=== PATIENT | male | born 1955 | race Caucasian/White ===

== ENCOUNTER 2018-08-20 10:43 | Emergency (ER) | payer OTHER ==
--- NOTE | 2018-08-20 10:57 | EDPHY ---
H & P Time Seen by Provider: 08/20/18 10:56 HPI/ROS: CHIEF COMPLAINT: Blood in urine HISTORY OF PRESENT ILLNESS: Grandson has been having gastroenteritis 2 weeks ago and he has felt a little bit of intermittent stomach upset for the past week. On night he did notice that he was much more tired than usual after a workout which includes running and some weight exercises. Or last 48 hr increased urinary frequency and then today noticed it was rust or nancy- colored and then it episodes of hematuria at 9:00 a.m. 10:30 a.m. And again in the emergency department. Blood in urine not associated with abdominal pain or fever. Not better or worse with anything. Moderate. REVIEW OF SYSTEMS: Eye: no change in vision ENT: no sore throat Cardiac: no chest pain or syncope. Of note his previous IN he had bilateral arm pain which she has not had today. Pulmonary: no cough or SOB Abdomen: no vomiting, diarrhea, abdominal pain Musculoskeletal: no back pain Skin: no rash Neuro: no headache Constitutional: no fever : HPI A comprehensive 10 point review of systems is otherwise negative aside from elements mentioned in the history of present illness. PAST MEDICAL HISTORY: Includes myocardial infarction in June of 2017 Social history: Nonsmoker General Appearance: Alert and conversant, cooperative. Eyes: No scleral icterus. ENT, Mouth: Normal mucous membranes. Respiratory: Normal respiratory effort, breath sounds equal, lungs are clear to auscultation. Cardiovascular: Regular rate and rhythm. Gastrointestinal: Abdomen is soft and non tender. Normal male without any blood at the meatus, normal testicles. Neurological: Alert, face symmetric, normal motor and sensory in extremities. Skin: Warm and dry, no rashes. No petechiae or purpura. Musculoskeletal: No peripheral edema. Psychiatric: Not agitated. Emergency Department course/MDM: Bladder scan, CBC chemistry urinalysis, total CPK. Urinalysis positive for hematuria and pyuria with 4+ bacteria. Culture sent and IV ceftriaxone discussed and consented. Think it is unlikely that he has pyelonephritis or sepsis, systemic coagulopathy , ACS, appears to be a good candidate for outpatient treatment. Not vomiting, afebrile, nontoxic and appears well and this is what the patient would like. Constitutional: Initial Vital Signs Temperature (C) 36.9 C 08/20/18 10:44 Heart Rate 67 08/20/18 10:44 Respiratory Rate 16 08/20/18 10:44 Blood Pressure 115/73 08/20/18 10:44 O2 Sat (%) 95 08/20/18 10:44 O2 Delivery Mode Room Air Allergies/Adverse Reactions: No Known Allergies Allergy (Unverified 08/20/18 10:50) Home Medications: Medication Instructions Recorded Aspirin [Aspirin 325 mg (*)] 08/20/18 Cephalexin [Keflex] 500 mg PO QID #40 cap 08/20/18 Clopidogrel 08/20/18 Lisinopril 08/20/18 Metoprolol Succinate 08/20/18 Rosuvastatin Calcium 08/20/18 Medical Decision Making - Data Points Laboratory Results: Laboratory Results 08/20/18 11:00 08/20/18 11:00 08/20/18 08/20/18 08/20/18 11:00 11:00 11:00 WBC 12.56 10^3/uL H 10^3/uL (3.80-9.50) RBC 5.06 10^6/uL 10^6/uL (4.40-6.38) Hgb 16.2 g/dL g/dL (13.7-17.5) Hct 48.4 % % (40.0-51.0) MCV 95.7 fL fL (81.5-99.8) MCH 32.0 pg pg (27.9-34.1) MCHC 33.5 g/dL g/dL (32.4-36.7) RDW 12.7 % % (11.5-15.2) Plt Count 189 10^3/uL 10^3/uL (150-400) MPV 9.4 fL fL (8.7-11.7) Neut % (Auto) 76.8 % H % (39.3-74.2) Lymph % (Auto) 13.0 % L % (15.0-45.0) Wheeler % (Auto) 9.2 % % (4.5-13.0) Eos % (Auto) 0.4 % L % (0.6-7.6) Baso % (Auto) 0.3 % % (0.3-1.7) Nucleat RBC Rel Count 0.0 % % (0.0-0.2) Absolute Neuts (auto) 9.64 10^3/uL H 10^3/uL (1.70-6.50) Absolute Lymphs (auto) 1.63 10^3/uL 10^3/uL (1.00-3.00) Absolute Monos (auto) 1.16 10^3/uL H 10^3/uL (0.30-0.80) Absolute Eos (auto) 0.05 10^3/uL 10^3/uL (0.03-0.40) Absolute Basos (auto) 0.04 10^3/uL 10^3/uL (0.02-0.10) Absolute Nucleated RBC 0.00 10^3/uL 10^3/uL (0-0.01) Immature Gran % 0.3 % % (0.0-1.1) Immature Gran # 0.04 10^3/uL 10^3/uL (0.00-0.10) Sodium 141 mEq/L mEq/L (135-145) Potassium 4.7 mEq/L mEq/L (3.5-5.2) Chloride 108 mEq/L mEq/L (97-110) Carbon Dioxide 24 mEq/l mEq/l (22-31) Anion Gap 9 mEq/L mEq/L (6-14) BUN 23 mg/dL mg/dL (7-23) Creatinine 1.1 mg/dL mg/dL (0.7-1.3) Estimated GFR > 60 Glucose 84 mg/dL mg/dL (70-100) Calcium 9.2 mg/dL mg/dL (8.5-10.4) Creatine Kinase 258 IU/L H IU/L (0-224) CK-MB (CK-2) Fraction 3.66 ng/mL ng/mL (0.00-4.55) CK-MB (CK-2) % 1.4 % % (0.0-4.0) Creatine Kinase Interp NEGATIVE (NEGATIVE) Urine Color Urine Appearance Urine pH Ur Specific [place] Urine Protein Urine Ketones Urine Blood Urine Nitrate Urine Bilirubin Urine Urobilinogen Ur Leukocyte Esterase Urine RBC Urine WBC Ur Epithelial Cells Urine Bacteria Urine Mucus Urine Glucose 08/20/18 10:50 WBC RBC Hgb Hct MCV MCH MCHC RDW Plt Count MPV Neut % (Auto) Lymph % (Auto) Wheeler % (Auto) Eos % (Auto) Baso % (Auto) Nucleat RBC Rel Count Absolute Neuts (auto) Absolute Lymphs (auto) Absolute Monos (auto) Absolute Eos (auto) Absolute Basos (auto) Absolute Nucleated RBC Immature Gran % Immature Gran # Sodium Potassium Chloride Carbon Dioxide Anion Gap BUN Creatinine Estimated GFR Glucose Calcium Creatine Kinase CK-MB (CK-2) Fraction CK-MB (CK-2) % Creatine Kinase Interp Urine Color RED Urine Appearance TURBID Urine pH 6.0 (5.0-7.5) Ur Specific [place] 1.023 (1.002-1.030) Urine Protein 2+ H (NEGATIVE) Urine Ketones NEGATIVE (NEGATIVE) Urine Blood 3+ H (NEGATIVE) Urine Nitrate NEGATIVE (NEGATIVE) Urine Bilirubin NEGATIVE (NEGATIVE) Urine Urobilinogen NEGATIVE EU EU (0.2-1.0) Ur Leukocyte Esterase TRACE H (NEGATIVE) Urine RBC 50-182 /hpf H /hpf (0-3) Urine WBC 50-182 /hpf H /hpf (0-3) Ur Epithelial Cells NONE SEEN /lpf /lpf (NONE-1+) Urine Bacteria 4+ /hpf H /hpf (NONE SEEN) Urine Mucus 3+ /lpf H /lpf (NONE-1+) Urine Glucose 1+ H (NEGATIVE) Medications Given: Discontinued Medications Ceftriaxone Sodium/Dextrose (Rocephin 1 Gm (Premix)) 50 mls @ 100 mls/hr IV EDNOW ONE PRN Reason: Protocol Stop: 08/20/18 12:07 Last Admin: 08/20/18 11:43 Dose: 50 mls Departure - Departure Disposition: Home, Routine, Self-Care Clinical Impression: Urinary tract infection Qualifiers: Urinary tract infection type: acute cystitis Hematuria presence: with hematuria Qualified Code(s): N30.01 - Acute cystitis with hematuria Condition: Good Instructions: Urinary Tract Infection in Men (ED) Referrals: Garry Tariq MD [Primary Care Provider] - As per Instructions Chi Gonzalez MD [[facility] – [place] Primary Care Provider] - As per Instructions Prescriptions: Cephalexin [Keflex] 500 mg PO QID #40 cap
[2018-08-20 11:09] LABS: PLATELET COUNT 189 10^3/uL (150-400)
[2018-08-20 11:28] LABS: CREATINE KINASE 258 IU/L (0-224)
[2018-08-20 12:24] VITALS: BP 119/77
== END 2018-08-20 12:24 | disposition home or self-care (01) ==
PROC: 4A0D7LZ Measurement of Urinary Volume, Via Natural or Artificial Opening (ICD-10-PCS; principal; 2018-08-20)
DX: N30.01 Acute cystitis with hematuria (principal)
CPT/HCPCS: 51798; 96365; 99284; J0696